=== PATIENT | male | born 1975 | race Caucasian/White ===

== ENCOUNTER 2019-06-11 04:50 | Emergency (ER) | payer OTHER ==
[~2019-06-11] VITALS: Ht 170.2 cm; Wt 77.1 kg
[2019-06-11 05:00] VITALS: Ht 170.2 cm; Wt 77.1 kg
[2019-06-11 06:10] LABS: BASOPHIL % 0.8 % (0-2); PLATELET COUNT 265 x10^3mcL (130-400); RED CELL DISTRIBUTION WIDTH 13.3 % (11.5-14.5)
[2019-06-11 06:30] LABS: ALBUMIN 3.9 g/dL (3.4-5.0); ALKALINE PHOSPHATASE 84 U/L (46-116); ALT/SGPT 29 U/L (16-63); AST/SGOT 25 U/L (15-37); BILIRUBIN TOTAL 0.26 mg/dL (0.20-1.00); CALCIUM 8.5 mg/dL (8.5-10.1); CARBON DIOXIDE 27.4 mmol/L (21-32); CHLORIDE SERUM 108 mmol/L (98-107); CREATININE SERUM 1.2 mg/dL (0.7-1.3); GFR1 > 60 mL/min; GLUCOSE SERUM 96 mg/dL (74-106); LIPASE 197 IU/L (73-393); POTASSIUM SERUM 4.1 mmol/L (3.5-5.1); SODIUM SERUM 145 mmol/L (136-145); TOTAL PROTEIN, SERUM 7.5 g/dL (6.4-8.2)
[2019-06-11 06:31] VITALS: BP 113/68
[2019-06-11 06:31] LABS: AMYLASE 122 U/L (25-115)
== END 2019-06-11 06:31 | disposition home or self-care (01) ==
LOC: ED 04:50
PROVIDERS: Emergency Medicine
DX: F10.129 Alcohol abuse with intoxication, unspecified (principal); Y90.6 Blood alcohol level of 120-199 mg/100 ml
CPT/HCPCS: 36415; G0480; Q0162